=== PATIENT | male | born 1975 | race African-American/Black ===

== ENCOUNTER 2016-10-05 09:42 | Emergency (ER) | payer SELFPAY ==
[2016-10-05 10:12] VITALS: BP 118/70
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
== END 2016-10-05 12:08 | disposition left against medical advice (07) ==
LOC: UCCORT 09:42
DX: R94.31 Abnormal electrocardiogram [ECG] [EKG] (principal); R10.9 Unspecified abdominal pain; F17.210 Nicotine dependence, cigarettes, uncomplicated
CPT/HCPCS: 93005; 99212; G0463